=== PATIENT | male | born 1975 | race Caucasian/White ===

== ENCOUNTER 2018-05-31 08:30 | Emergency (ER) | payer OTHER ==
[~2018-05-31] VITALS: Ht 177.8 cm; Wt 95.7 kg
[2018-05-31] MEDS ORDERED: MOTRIN600 MG PO (10:47)
[2018-05-31] MEDS ORDERED: FLEXERIL10 MG PO (10:47)
[2018-05-31] MEDS ORDERED: NORCO 5/3251 TABLET PO (10:48)
[2018-05-31 11:11] VITALS: BP 136/86
== END 2018-05-31 11:12 | disposition home or self-care (01) ==
LOC: EME 08:30
DX: M54.5 Low back pain (principal)
CPT/HCPCS: 99281; 99284